=== PATIENT | female | born 1950 | race Caucasian/White ===

== ENCOUNTER 2018-01-18 12:30 | Outpatient (RCR) | payer MEDICARE, SELFPAY ==
--- NOTE | 2017-12-27 11:56 | HP.PTEVAL_ITS ---
Patient's Visit Information OVIDIO GROSS is a 67 year old F referred to Physical Therapy by Holland OCAMPO with a diagnosis of DDD, OA L/S. Date of Evaluation: 12/27/17 Physical Therapist: Matthieu Santiago DPT, OC - Visit Plan Frequency: 3x /Week Duration: 4 Weeks Plan: 3x/week for 2-4 weeks for...(pt has osteoporosis). 1. NS posture and LB ROM , emphasize NS dstrength mat to sit to stand. 2. STM and stretching to piriformis and stretch hip flexor and progress to HEP. 3. MH and ES to L LB if needed. Monitor heel lift in R shoe which should help, pt may want to buy one. - Subjective Subjective: Can't sleep at night due to pain. Has been in pain since August when pain started insidiously. Working out at [employer] made it feel better. It is worsening overall and especially hard to get comfy at night. Normally is a side sleeper on L side but that is where the sciatica is. Worse at times with coughing or sneezing. Basic ADLs are all good but has to plan steps to one trip as it makes her worse. Takes one step at a time. Retired. Hobbies: babysitting grandchildren, has a one year old grandchild and lifting that baby is hard and carrying. Pain starts in L LB and radiates down to posterior knee intermittently. Worse in morning better after gets going. Day is not so bad, moving is better than sitting. Difficult at times to get out of recliner. Was visiting son 1.5 hour flight and got off flight and it really hurt to walk to baggage claim. Improved as she walked. - Pain L LB Pain Intensity (Out of 10): 5 Pain Intensity Range: 0, 10 Comment: 10 at night - Objective Walks I and transfers I, lifting hips to turn /roll in bed very painful and slow. L leg appears 1/4 longer than R WB and NWB, corrected with modified heel lift today. L/S aROM ext mod limited, flexion min limited, SB Min limited , L SB adn ext painful on L side.\. reflexes 2/3 patella and achilles. Sensation LE WNL to gross light touch. Strength 4/5 LE. PA pressure slightly painful. + L SLR. HS adn hip flexors mod tight. - Goals Goal 1:: Sleep without interruption at night due to pain. Goal Time Frame: 2-4 Weeks Goal 2:: LB ROM without pain. Goal Time Frame: 2-4 Weeks Goal 3:: I approp HEP and posture for continued improvement. Goal Time Frame: 2-4 Weeks Goal 4:: LB pain 1/10 at worst and not interrupting babysitting. Goal Time Frame: 2-4 Weeks - Rehabilitation Potential Physical Therapy Diagnosis: Degenerative changes in L/S Rehabilitation Potential: Fair - Anticipated Interventions Patient/Client Instruction: Educate patient on: Condition, Plan of Care For the Purpose of:: To decrease pain Therapeutic Exercise to Include: Strength training, Flexibilty training, Active ROM, Dynamic Lumbar Stabilization For the Purpose of:: To decrease pain, To increase ROM, To improve ability of physical actions for home/community/work/leisure Manual Therapy Techniques to Include: Soft tissue mobilization Comment: L glut./LB For the Purpose of:: To decrease pain, To improve nutrient delivery to tissue Orthotics: Shoe insert Comment: heel lift R For the Purpose of:: To decrease pain TENS: Yes Thermo therapy (hot pack): Yes For the Purpose of:: To decrease pain Thank you for the opportunity to evaluate your patient. For Medicare and Medicare HMO plans, please review the plan of care and approve it. It will need to be FAXED BACK to us at [phone] for Medicare purposes. Please let me know if there are questions or concerns regarding this plan of care. Physician Signature: Date:
--- NOTE | 2018-01-18 13:30 | HP.PTDCSUM ---
HP - PT D/C Summary It has been my pleasure to treat OVIDIO GROSS under orders from DR.JGARRI Drew for the diagnosis of DDD, OA L/S for a total of 9 visit(s). Discharge Date: 01/18/18 Please see the following information for a summary of their discharge status. - Subjective Subjective: Some days are much better and others are not. Riding in car and leaning forward really made her worse and 10/10 in back and left leg when she got up. A little better otherwise.No f/u scheduled - Pain L LB Pain Intensity (Out of 10): 2 R LB Pain Intensity (Out of 10): 0 - Overall Improvement % Improvement: 60 - Objective Objective/Function: Still painful with ext adn L SB on L l/S, R SB is painfree as is flexion. Pt still frustrated with level of pain she puts up with some days. - Goals Goal 1:: Sleep without interruption at night due to pain. Goal Progress: Not Progressing Goal 2:: LB ROM without pain. Goal Progress: Progressing Goal 3:: I approp HEP and posture for continued improvement. Goal Progress: Goal Met Goal 4:: LB pain 1/10 at worst and not interrupting babysitting. Goal Progress: Progressing - Plan Plan: Continue HEP and call doctor if pain doesn't improve to her satisfaction. Water therapy should be a consideration but patient does not wish to pursue right now. - D/C Information Discharge Comments: Pt improved but still frustrated with pain level. Will continue via HEP and contact doctor if improvement does not continue. If there are questions or concerns regarding this patient's physical therapy, please feel free to call me at [phone]. Thank you for the referral of this patient. Sincerely, Matthieu Santiago, DPT, OC
== END 2018-01-18 19:00 | disposition home or self-care (01) ==
LOC: PT 12:30
PROVIDERS: Family Provider Student in an Organized Health Care Education/Training Program; PCP Student in an Organized Health Care Education/Training Program; Visit Provider Student in an Organized Health Care Education/Training Program
DX: M51.36 Other intervertebral disc degeneration, lumbar region (principal); M47.816 Spondylosis without myelopathy or radiculopathy, lumbar region; M85.80 Other specified disorders of bone density and structure, unspecified site
CPT/HCPCS: 97110; 97162; 97530

== ENCOUNTER 2022-11-16 13:20 | Emergency (ER) | payer MEDICARE, SELFPAY ==
[2022-11-16 13:21] VITALS: BP 166/95; PULSE 108; RESP 16; TEMP 36.1; O2SAT 100; BMI 29.5
--- NOTE | 2022-11-16 14:26 | US_ITS ---
STUDY: ULTRASOUND OF THE FEMALE PELVIS - COMPLETE REASON FOR EXAM: Female, 72 years old. Vaginal bleeding LMP: Patient is postmenopausal. TECHNIQUE: Transvaginal TECHNICAL QUALITY: Adequate. COMPARISON: None. FINDINGS: The uterus is anteverted and is in a midline position. The uterus measures 10.9 cm x 6.9 cm x 5.2 cm. Normal uterine cervix. The endometrium is markedly thickened and measures 30 mm in thickness, and is heterogeneous (striated). Endometrial mass should be ruled out. There is no demonstrated myometrial mass. I.U.D. - The patient does not have an I.U.D. The right ovary is non-visualized. The left ovary is visualized. The left ovary measures 4 cm x 2.6 x 2.6 cm. There is no left ovarian cyst or ovarian mass. There is no visualized left adnexal mass or complex lesion. There is normal arterial and normal venous vascularity. There is no fluid in the cul-de-sac. The pre void volume of the bladder was 370 ml. US/Transvaginal Non- IMPRESSION: Markedly thickened endometrium. Endometrial mass should be ruled out. Electronically Signed: Brock Bull MD at 15:34 EST ,
--- NOTE | 2022-11-16 14:28 | ED.VIS.FEGU ---
HPI HPI - Female History of Present Illness Chief Complaint: Vag Bleeding Detail of Chief Complaint: Vaginal bleeding that started a little over 2 hours ago Informant: patient Narrative Narrative: Patient presents with vaginal bleeding that started around 12:30 PM. Patient states that she is gone through about 4 pads. She denies any abdominal or pelvic pain. She has been passing some clots. Patient denies recent intercourse or trauma. Patient has been losing weight although she is been using weight watchers and has been purposely losing weight and is lost over 30 pounds recently. Patient denies night sweats. Patient not on blood thinners only a baby aspirin. Prior similar symptoms: No PFSH PFSH Medical History (Updated 11/16/22 @ 15:[address] Raheel Mcdonald, DO) Diabetes Allergy/AdvReac Type Severity Reaction Status Date / Time Mtfmrqy-MMG-GlJ Reductase AdvReac Pain in Verified 11/16/22 13:22 Inhibitor joints Social History Smoking Status: Never smoker ROS ROS ED Review of Systems ROS Unobtainable: other Constitutional Constitutional ED: Reports lethargy; Denies chills, fever(s), sweats or weight loss Eyes Eyes: Denies blurry vision, change in vision or diplopia ENT ENT ED: Denies rhinorrhea or sore throat Cardiovascular Cardiovascular: Denies chest pain, orthopnea or racing heartbeat Respiratory/Chest Respiratory/Chest: Denies cough, dyspnea, dyspnea on exertion, orthopnea or sputum Gastrointestinal Gastrointestinal: Denies abdominal pain, diarrhea, nausea or vomiting Genitourinary Genitourinary ED: Reports other Details: Vaginal bleeding ; Denies dysuria, hematuria or urinary frequency Musculoskeletal Musculoskeletal: Denies arthralgias, back pain, myalgias or neck pain Integumentary Denies abscess, Abrasions or rash Neurologic Neurologic: Denies headache(s) or weakness Psychiatric Psychiatric: Denies anxiety, depression or suicidal thoughts Endocrine Endocrinology: Denies polydipsia, polyphagia or polyuria Hematologic/Lymphatic Hematologic/Lymphatic: Denies easy bleeding, easy bruising or lymphadenopathy Allergic/Immunologic Allergic/Immunologic ED: Denies mouth swelling, tongue swelling or urticaria EXAM Physical Exam Const Vital Signs: 11/16/22 13:21 Temperature 97 F L Temperature Source Temporal Pulse Rate 108 H Respiratory Rate 16 Blood Pressure 166/95 H Blood Pressure Mean 118 Pulse Ox 100 Oxygen Delivery Method Room Air Positive well nourished and well developed General Appearance ED: well developed and NAD HEENT Reports TM's clear and moist mucous membranes normocephalic and atraumatic; Negative for trauma or tenderness Tympanic Membrane ED: Yes TM's clear Eyes PERRL and EOMs intact bilaterally General Eye ED: Negative for pale conjunctiva or scleral icterus Neck no lymphadenopathy, supple and no JVD General: Negative for tenderness Chest Wall inspection of chest normal and palpation of chest normal Chest: Negative for tenderness Resp normal respiratory effort and clear to auscultation bilaterally Effort and Inspection: Negative for respiratory distress or pain with movement Auscultation: Negative for rhonchi, wheezes or diminished lung sounds Cardio regular rate, regular rhythm, S1 normal heart sound, S2 normal heart sound and no murmurs Peripheral Pulses: pulses 2+ throughout GI normal to inspection, nondistended, normoactive bowel sounds, soft to palpation, non-tender, non-distended and no masses Narrative: Pelvic exam performed. There was small amount of blood within the vaginal vault and small amount of dark blood coming from the cervical os. No abnormalities of the vaginal vault or cervix noted. No masses palpated on exam. Back/Spine no CVA tenderness and no thoracic nor lumbar tenderness Extremity normal to inspection General Extremety ED: Negative for edema General Extremity: Negative for edema Neuro oriented x3, CN's II-XII intact bilaterally, no sensory deficits noted and gait normal Sensorium / Orientation: awake, alert, oriented to person, oriented to place and oriented to time Motor Exam: strength 5/5 throughout and strength abnormal Psych mental status grossly normal Skin no rashes or lesions noted and no wounds MDM MDM MDM Narrative Medical decision making narrative: The line established on arrival. Patient had hemoglobin of 14 and a white count of 5.8. Pelvic ultrasound obtained but was read by radiology as markedly thickened endometrium and endometrial mass should be ruled out. I will discuss case with METAL FURNITURE POLISHER on-call. Lab Data Attestation: I reviewed the patient's lab results. Labs: Laboratory Results - last 24 hr 11/16/22 14:36 WBC 5.8 RBC 4.44 Hgb 14.0 Hct 41.3 MCV 93.0 MCH 31.5 MCHC 33.9 RDW Std Deviation 42.7 RDW Coeff of Smiley 12.6 Plt Count 159 MPV 11.3 Immature Gran % (Auto) 0.200 Neut % (Auto) 71.1 H Lymph % (Auto) 18.0 L [place] % (Auto) 9.7 Eos % (Auto) 0.5 Baso % (Auto) 0.5 Absolute Neuts (auto) 4.1 Absolute Lymphs (auto) 1.04 Nucleated RBC % 0 Radiography Diagnostic Testing: Clinical Impression(s) from Imaging Studies Transvaginal US 11/16/22 14:26 IMPRESSION: Markedly thickened endometrium. Endometrial mass should be ruled out. Electronically Signed: Brock Bull MD at 15:34 EST , Discharge Plan Triage Chief Complaint: Vag Bleeding ED Provider: Raheel Mcdonald Dx/Rx/DC Orders Clinical Impression: Abnormal vaginal bleeding Instructions: ED Dysfunctional Uterine Bleeding Primary Care Provider: Holland Almonte Referrals: Holland Almonte DO [Primary Care Provider] - Madison Lopez MD [Med Staff - Active Staff] - 1 Day Disposition Disposition: Home, Self Care
[2022-11-16] MEDS: 0.9% Normal Saline 1,000 ML 1000 ML IV (14:41)
[2022-11-16 14:49] LABS: Absolute Lymphocyte Count 1.04 X10^3/uL (0.83-4.51); Absolute Neutrophil Count 4.1 X10^3/uL (2.0-7.7); Basophil# 0.03 X10^3/uL; Basophil% 0.5 % (0-1); Eosinophil# 0.03 X10^3/uL; Eosinophils% 0.5 % (0-5); Hematocrit 41.3 % (37-47); Lymphocyte # 1.04 X10^3/ul (0.83-4.51); Mean Corp Hgb Conc 33.9 g/dL (32-36); Mean Corpuscular Hgb 31.5 pg (27.0-32.0); Mean Platelet Vol. 11.3 fl (6.2-12.0); Monocyte# 0.56 X10^3/uL; Monocyte% 9.7 % (0-10); NRBC Flagged by Analyzer 0 % (0-5); Neutrophil # 4.11 X10^3/uL (2.7-7.7); Neutrophil % 71.1 % (47-70); Platelet Count 159 K/mm3 (150-450); RBC Distribution Width CV 12.6 % (11.6-14.6); RBC Distribution Width SD 42.7 fl (35.1-43.9); Red Blood Count 4.44 M/mm3 (4.2-5.4); White Blood Count 5.8 K/mm3 (4.4-11.0)
== END 2022-11-16 16:03 | disposition home or self-care (01) ==
PROVIDERS: Emergency Provider Emergency Medicine; PCP Student in an Organized Health Care Education/Training Program; Visit Provider Emergency Medicine
DX: N93.9 Abnormal uterine and vaginal bleeding, unspecified (principal)
CPT/HCPCS: 76830; 85025; 96360; 99283; J7030; A4216

== ENCOUNTER 2022-11-18 05:45 | Day surgery (SDC) | payer MEDICARE, SELFPAY ==
--- NOTE | 2022-11-17 12:56 | PCM.HP.BLA ---
History and Physical Date of Admission: 11/18/22 Pre-Op History and Physical ? HPI: The patient is a 72 year old female presenting for pre-operative visit. She is scheduled for Hysteroscopy D&C with camila, for PMB, thickened endometrium on 11/18/22. Procedure discussed along with risks, benefits and complications. Other alternatives discussed for management. Consent form signed? Yes. ? ? PAST MEDICAL HISTORY PAST MEDICAL HISTORY Diagnosis Date ? Diabetes mellitus type 2, controlled, without complications (HCC) ? ? Dr. Alberto Engineering Technologist ? Hyperlipemia ? ? Hypothyroid ? ? Dr. Alberto Engineering Technologist ? Obesity ? ? ? PAST SURGICAL HISTORY PAST SURGICAL HISTORY Procedure Laterality Date ? D&C DIAG &/OR THERAP, NOT OB ? ? ? PAST SURGICAL HISTORY OF N/A 09/11/2018 ? 2 fusions, spine. Stenosis cleaned out ? TONSILLECTOMY PRIMARY/SECONDARY <AGE 12 ? ? ? Tonsillectomy ? ? ? CURRENT MEDICATIONS Current Outpatient Medications Medication Sig Dispense Refill ? norethindrone (AYGESTIN) 5 mg tablet Take 1 tab TID until bleeding stops then 1 tab BID x 3 days then 1 tab daily until surgery 60 tablet 1 ? dulaglutide (TRULICITY) 4.5 mg/0.5 mL pen injector Inject 4.5 mg subcutaneously one time a week. 12 Each 2 ? blood sugar diagnostic (BLOOD GLUCOSE TEST) test strip Test blood sugar(s) 2 times daily. Dx: Type 2 DM - Uncontrolled E11.65 Insulin: No 180 Strip 3 ? levothyroxine (SYNTHROID) 88 mcg tablet Take 1 tablet by mouth once daily. 90 tablet 3 ? cyclobenzaprine (FLEXERIL) 10 mg tablet Take 1 tablet by mouth at bedtime as needed for Muscle Spasm. 30 tablet 0 ? methocarbamol (ROBAXIN) 500 mg tablet Take 1 tablet by mouth twice daily as needed (muscle spasm, muscle pain). 20 tablet 1 ? calcium carbonate 600 mg-cholecalciferol 200 units (CALCIUM 600 + D,3,) 600 mg(1,500mg) -200 unit tab Take 1 tablet by mouth once daily. ? ? ? Cholecalciferol, Vitamin D3, (VITAMIN D) 1,000 unit cap Take 1,000 Units by mouth once daily. ? ? ? biotin 1 mg cap Take by mouth once daily. ? ? ? Aspirin 81 mg Tab Take 1 tablet by mouth once daily. Take with food. 30 tablet 11 ? blood sugar diagnostic (ACCU-CHEK FERNANDO) test strip Use as instructed 200 Each 4 ? Current Facility-Administered Medications Medication Dose Route Frequency Provider Last Rate Last Admin ? perflutren lipid microspheres 1.3 mL in NaCl (PF) 0.9% 10 mL injection (DEFINITY) INTRAVENOUS DIRECTED PRN Bella Salazar APRN.DUCT INSTALLER ? sodium chloride 0.9 % (flush) 10 mL (BD POSIFLUSH) 10 mL INTRAVENOUS DIRECTED PRN Bella Salazar APRN.DUCT INSTALLER ? ? ALLERGIES: Crestor [Rosuvastatin Calcium], Nbziert-Uhi-Sim Reductase Inhibitors, and Zocor [Simvastatin] ? PERSONAL HISTORY: SOCIAL HISTORY Social History ? Tobacco Use ? Smoking status: Never ? Smokeless tobacco: Never Substance Use Topics ? Alcohol use: Yes ? ? Comment: occasionally ? FAMILY HISTORY: FAMILY HISTORY FAMILY HISTORY Problem Relation Age of Onset ? Cancer Mother ? ? Ovarion 72 ? Diabetes Father ? ? Heart Father ? ? 78 ? Cancer Maternal Grandmother ? Diabetes Paternal Grandmother ? ? Diabetes Son ? ? type 1 ? ? REVIEW OF SYMPTOMS: negative except as noted above PHYSICAL EXAMINATION: ? VITALS: Blood pressure 140/72, weight 169 lb (76.7 kg). ? GENERAL: The patient is well nourished, well hydrated in no acute distress. , The patient is oriented to time, place, and person. NECK: full range of motion LUNGS: Clear to auscultation bilaterally. no wheezes, rhonchi or rales HEART: Regular rate and rhythm and Normal heart sounds GENITALIA: Normal external genitalia, Urethral meatus normal, normal cervix, and perineum WNL ? IMPRESSION: 72yo with PMB, Thickened Endometrium- Heavy vaginal bleeding. ? PLAN: Hysteroscopy, D&C in OR with Symphion ? Pt has been counseled on risks/benefits and alternatives of surgery including but not limited to anesthesia, bleeding, infection, uterine perforation with subsequent injury to pelvic structures including bowel, bladder, ureters and vessels. Pt wishes to proceed with surgery at this time. ? Pre and post op instructions reviewed ? I discussed with the patient after she left the office today that I had a cancellation and could fit her in for surgery tomorrow since we are going to the holiday weekend I am concerned with her bleeding that if it picked back up. Patient was agreeable to this and would like to proceed with surgery at this time. ? I have reviewed and updated past medical and surgical history, medications and allergies Mariel Walton MD Office Visit on 11/17/2022 Office Visit on 11/17/2022 Note shared with patient
[2022-11-18] VITALS (7 sets, daily range): BP systolic 96–162; BP diastolic 52–88; PULSE 64–99; RESP 16; TEMP 36.3–37; O2SAT 90–98; BMI 29.0
--- NOTE | 2022-11-18 | IMM_PTH ---
PATIENT: OVIDIO GROSS LOC: [facility] [place] U#:[id number] AGE/SX: 72/F ROOM: RE11/18/[address]: Dr. Mariel Briones, MDDOB: 1950 BED: DIS: 11/18/2022 SPEC #: [id number] RECD: 11/19/22 13:27 STATUS: MEJIA RERavin #: [id number] LISY: 11/18/22 00:[address]: Mariel Briones DEPT: IMMUNOHISTOCHEMISTRY RECD BY: Myra Sanchez ENTERED: 11/19/22 13:30 SP TYPE: IMMUNO OTHR DR: Dr. Holland Almonte DO Tissues: Endometrium, NOS Procedures: MSH2 (add) MLH-1 (add) MSH6 (add) Anti-PMS2 (add) KI-67 (add) P53 (add) HER-2-KRISTAN (initial) PHYSICIAN & INSTITUTION [address] [address] SPECIMEN INFORMATION: Tissue Source: Endometrial curettings and polyps Clinical Info: Postmenopausal bleeding Specimen Number: [id number] #4 CPT code: 27522, 26511 x6 METHODOLOGY: Deparaffinized sections of prefer/formalin-fixed tissue or PAP/DQ stained slides are incubated with monoclonal/polyclonal antibodies/oligonucleotide probes. Localization is made via biotin free immunoperoxidase method. Appropriate controls are performed and reacted as expected. Results on target cell population are indicated in the following table: RESULTS: ANTIBODY / CLONE RESULT Block 4 Her-2neu (CB11) negative (1+, focal) MLH-1 (M1) negative MSH2 (25D12) positive MSH6 (44) positive PMS2 (YFG2066) positive Ki-67 (30-9) positive, high P53 (DO-7) positive (wide type <50%, weak) These tests were developed and their performance characteristics determined by [facility]. They may not have been cleared or approved by the U.S. Food and Drug Administration. The FDA has determined that such clearance or approval is not necessary. The above immunohistochemical/dualISH markers are ordered and reviewed by the Pathologist. INTERPRETATION: Endometrial curettings and polyps: Papillary endometrial adenocarcinoma. Result of Microsatellite Instability Study: Positive (loss of mismatch protein; microsatellite instability detected). Complete loss of MLH1. SJ:siobhan 11/23/2022
[2022-11-18] MEDS: Lactated Ringers 1,000 ML 15 ML IV (06:33)
[2022-11-18] MEDS: Insulin Lispro 100 UNIT/ML INSULN.PEN SC (06:56)
[2022-11-18 07:10] LABS: Bedside Glucose 394 mg/dL (74-106)
--- NOTE | 2022-11-18 07:30 | EMB_PTH ---
PATIENT: OVIDIO GROSS LOC: [facility] [place] U#:[id number] AGE/SX: 72/F ROOM: RE11/18/[address]: Dr. Mariel Briones, MDDOB: 1950 BED: DIS: 11/18/2022 SPEC #: [id number] RECD: 11/18/22 10:15 STATUS: MEJIA TISHA #: [id number] LISY: 11/18/22 07:[address]: Mariel Briones DEPT: SURGICAL PATHOLOGY RECD BY: Laisha Farrell ENTERED: 11/18/22 12:43 SP TYPE: ENDOM BX/C CADE DR: Dr. 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 See comment. Robert 11/19/2022 COMMENT The tumor also shows focal necrosis. Immunohistochemistry ([id number]) for microsatellite instability (mismatch repair of protein) will be performed and the results will be reported separately. MICROSCOPIC DESCRIPTION Slides are reviewed. GROSS DESCRIPTION Received in fixative is one container labeled with the patient's name and designated Endometrial curettings and polyps. The specimen consists of multiple fragments of duffy hemorrhagic soft tissue that in aggregate measure 5 x 3 x 0.6 cm. The entire specimen is submitted in four cassettes. / Robert 11/18/2022 TC:0 CPT: 34778 ADDENDUM ADDENDUM ADDENDUM ADDENDUM ADDENDUM ADDENDUM ADDENDUM ADDENDUM ADDENDUM ADDENDUM 03/30/2023 10:38 ADDENDUM 03/30/2023 10:38 ADDENDUM 03/30/2023 10:38 ADDENDUM 03/30/2023 10:38 ADDENDUM 03/30/2023 10:38 This addendum is added to incorporate an outside pathology consultation report. The case was examined at [facility] (#[id number]) and the following diagnosis was rendered. Endometrium, curettage and polypectomy: Endometrioid adenocarcinoma, FIGO grade 2. Please see complete above mentioned consultation report in EMR
--- NOTE | 2022-11-18 07:44 | PCM.OPRPT ---
Report of Operation Date of Procedure: 11/18/22 Pre-Operative Diagnosis: PMB, thickened endometrium Post-Operative Diagnosis: Same, Endometrial Polyps Surgery/Procedure Performed:: Hysteroscopy, D&C, polypectomy Description of Surgical Findings:: Multiple endometrial polyps noted, thickened endometrial tissue Surgeon: Mariel Briones Type of Anesthesia: MAC Specimen's removed: endometrial curettings, endometrial polyps Drains: none Estimated Blood Loss (mL): <5cc Fluids Replaced: 800 Description of Procedure: Informed consent was obtained the patient was taken the operating room she was placed in supine position. She was given anesthesia. She was then placed in the [facility] where she was prepped and draped in the normal sterile fashion. At this time the weighted speculum was placed in the posterior fornix of vagina. Single-tooth tenaculum was used to gently grasp the anterior lip the cervix. At this time the uterine cavity was sounded to approximately 10 cm. Gentle dilatation was performed once adequate dilatation of the cervix was achieved the hysteroscope using normal saline as a distention medium was placed. thickened endometrial tissue noted and multiple endometrial polyps noted. Symphion resecting device used to obtain endometrial curettings and to perform polypectomies. Tissue will be sent to pathology for evaluation. once tissue was cleared tubal ostia were then visualized and cavity was cleared and appeared normal. cavity intact. scope removed. Tenaculum removed. Good hemostasis. Instrument, lap count correct x 2. fluid deficit approximately 800cc. Vaginal Sweep was negative. Grafts/Implants Used: none Procedure Start Time: 07:32 Procedure Stop Time: 07:44 Complications none Admit VTE Documentation VTE Present on Admission: Yes VTE Mechan Device Prophylaxis: SCD's VTE Pharm Prophylaxis ordered?: No Reason prophylaxis not ordered:: Procedure Not Indicated
--- NOTE | 2022-11-18 07:48 | DCINST_ITS ---
Discharge Instructions Procedure D&C Diet Discharge Diet: No restrictions Activity May resume sexual activity in: 1 week Dressing / Incision Call your doctor if you observe: Fever of 101 or Higher, Inability to urinate, Using more than 1 pad per hour and Uncontrolled pain Follow Up Care Please Follow Up With: Mariel Briones MD When: 1-2 weeks post OP if you need an appointment please call [phone] Test Results: Test results from this visit will be discussed in further detail at your follow- up appointment, if applicable. Discharge Plan Admission Attending Provider: Mariel Briones Primary Care Provider: Holland Almonte Discharge Orders/Prescriptions Prescriptions: No Action levothyroxine 88 mcg Tablet 88 mcg PO DAILY norethindrone acetate 5 mg Tablet 5 mg PO TID Trulicity 3 mg/0.5 mL Pen Injector 3 mg SUBCUT ELIAS Referrals / Follow Up: Holland Almonte DO [Primary Care Provider] - Disposition Disposition (needs filled in before D/C Order can be placed): Home, Self Care
[2022-11-18 08:21] LABS: Bedside Glucose 363 mg/dL (74-106)
[2022-11-18 09:11] LABS: Bedside Glucose 311 mg/dL (74-106)
== END 2022-11-18 09:46 | disposition home or self-care (01) ==
LOC: SDC 05:52 → AC 06:43
PROVIDERS: PCP Student in an Organized Health Care Education/Training Program; Referring Provider Obstetrics & Gynecology; Visit Provider Obstetrics & Gynecology
PROC: 0UB98ZZ Excision of Uterus, Via Natural or Artificial Opening Endoscopic (ICD-10-PCS; CPT 58558; principal; 2022-11-18 07:15)
DX: C54.1 Malignant neoplasm of endometrium (principal); E11.9 Type 2 diabetes mellitus without complications; N84.0 Polyp of corpus uteri; R93.89 Abnormal findings on diagnostic imaging of other specified body structures; E07.9 Disorder of thyroid, unspecified; Z79.899 Other long term (current) drug therapy
CPT/HCPCS: 58558; 00952; 82962; 88305; 88341; 88342; J7120; J2405